=== PATIENT | male | born 1985 | race Two or more races ===

== ENCOUNTER 2020-11-14 09:10 | Emergency (ER) | payer OTHER ==
[~2020-11-14] VITALS: Ht 185.4 cm; Wt 115.7 kg
== END 2020-11-14 13:30 ==
LOC: ER 09:10
DX: L02.811 Cutaneous abscess of head [any part, except face] (principal); L02.411 Cutaneous abscess of right axilla

== ENCOUNTER 2022-09-26 16:58 | Emergency (ER) | payer OTHER ==
[~2022-09-26] VITALS: Ht 182.9 cm; Wt 114.8 kg
[2022-09-26] MEDS ORDERED: NASONEX 24HR AL17 ML NASAL (20:22)
== END 2022-09-26 20:32 | disposition home or self-care (01) ==
LOC: ER 16:58
DX: R05.9 Cough, unspecified (principal); Z20.822 Contact with and (suspected) exposure to COVID-19